=== PATIENT | male | born 1950 ===

== ENCOUNTER 2019-01-20 07:55 | Day surgery (SDC) | payer MEDICARE, OTHER ==
[2019-01-18 14:20] VITALS: BMI 31.5
[2019-01-20] MEDS ORDERED: DEXAMETHASONE SOD PHOSPHATE 10 MG/ML 1 ML VIAL IV ONE (08:01)
[2019-01-20] MEDS ORDERED: LIDOCAINE 1% 20 ML VIAL (10MG/ML) FOR IV START INTRADERMA PRN (08:01)
[2019-01-20] MEDS ORDERED: ONDANSETRON 4 MG/2 ML VIAL IVP ONE (08:01)
[2019-01-20] MEDS ORDERED: LACTATED RINGERS 1,000 ML IV SCH (08:01)
[2019-01-20 08:13] VITALS: RESP 16; TEMP 98.4
[2019-01-20 08:26] LABS: Glucose,Whole Blood 141 mg/dL (75-99)
[2019-01-20] MEDS ORDERED: LIDOCAINE 1% INJ 10MG/ML (20 ML MDV) ONE (09:33)
[2019-01-20] MEDS ORDERED: PROPOFOL 10 MG/ML 20 ML VIAL IV ONE (09:33)
[2019-01-20] MEDS ORDERED: fentaNYL (PF) 50 MCG/ML 2 ML AMP ONE (09:33)
[2019-01-20] MEDS ORDERED: MIDAZOLAM 2 MG/2 ML VIAL ONE (09:33)
--- NOTE | 2019-01-20 10:16 | P.PCN ---
Date of Procedure: 01/20/19 Description of Procedure: BRIEF HISTORY: Patient is a 68-year-old pleasant male scheduled for an elective colonoscopy as a part of screening for malignant neoplasm of the colon. The patient denies any change in bowel habits, blood per rectum, abdominal pain or family history of colon cancer. Last colonoscopy 13 years ago per the patient. PROCEDURE PERFORMED: Colonoscopy with polypectomy. PREOPERATIVE DIAGNOSIS: Screening for malignant neoplasm of the colon, last colonoscopy 13 years ago. ESTIMATED BLOOD LOSS: Minimal. IV sedation per Anesthesia. PROCEDURE: After informed consent was obtained, the patient, was brought into the endoscopy unit. IV sedation was administered by Anesthesia under continuous monitoring. Digital rectal examination was normal. Initially the Olympus CF-190 flexible video colonoscope was then inserted in the rectum, gradually advanced into the cecum without any difficulty. Careful examination was performed as the scope was gradually being withdrawn. Ileocecal valve and the appendiceal orifice were visualized and appeared normal, with a 4 mm ileocecal valve polyp removed with cold forcep polypectomy completely. Prep was good. Mucosa of the cecum, ascending colon, transverse colon, descending colon, sigmoid colon, and rectum appeared normal. Retroflexion was performed in the rectum and no lesions were seen, mild internal hemorrhoids and skin tags noted. The patient tolerated the procedure well. IMPRESSION: Normal-appearing colon from rectum to cecum. Ileocecal valve polyp removed with cold forcep polypectomy. RECOMMENDATIONS: Findings of this examination were discussed with the patient and his . Okay to resume diet. Okay to resume Plavix tomorrow. Await pathology from polypectomy. Would recommend repeat colonoscopy in 5 years pending pathology from polypectomy.
[2019-01-20 10:35] VITALS: BP 151/91; PULSE 77
== END 2019-01-20 10:57 | disposition home or self-care (01) ==
LOC: ORWHC2ENDO 07:55
PROVIDERS: ATTEND Internal Medicine
DX: Z12.11 Encounter for screening for malignant neoplasm of colon (principal); D12.0 Benign neoplasm of cecum; K64.4 Residual hemorrhoidal skin tags; K64.8 Other hemorrhoids; I10 Essential (primary) hypertension; K21.9 Gastro-esophageal reflux disease without esophagitis; E11.9 Type 2 diabetes mellitus without complications; G47.33 Obstructive sleep apnea (adult) (pediatric); Z88.6 Allergy status to analgesic agent; Z88.8 Allergy status to other drugs, medicaments and biological substances; Z87.891 Personal history of nicotine dependence; Z99.89 Dependence on other enabling machines and devices; Z86.73 Personal history of transient ischemic attack (TIA), and cerebral infarction without residual deficits; Z79.02 Long term (current) use of antithrombotics/antiplatelets; Z79.82 Long term (current) use of aspirin; Z79.84 Long term (current) use of oral hypoglycemic drugs; Z79.899 Other long term (current) drug therapy; Z90.49 Acquired absence of other specified parts of digestive tract; Z98.890 Other specified postprocedural states
CPT/HCPCS: 88305; 45380; J2250; J2001; J3010; J2704

== ENCOUNTER → 2022-09-03 | Outpatient (CLI) | payer MEDICARE ==
[2022-09-03 16:12] LABS: Blood Urea Nitrogen 24.3 mg/dL (9.0-27.0); Carbon Dioxide 23.4 mmol/L (21.6-31.8); Chloride 98 mmol/L (96-109); Potassium 4.7 mmol/L (3.5-5.5); Sodium 138 mmol/L (135-145)
[2022-09-03 19:30] LABS: HCT 43.7 % (39.6-50.0); HGB 13.7 d/dL (12.0-15.0); MCH 29.3 pg (27.0-32.0); MCHC 31.4 d/dL (32.0-37.0); MCV 93.4 FL (80.0-97.0); Mean Platelet Volume 11.7 FL (9.5-12.2); NRBC Per 100 WBC 0 X 10*3/uL (0.00-0.01); Platelet Count 258 X 10*3/uL (140-440); RBC 4.68 X 10*6/uL (4.40-5.60); RDW 13.5 % (11.5-14.5); WBC 6.87 X 10*3/uL (4.50-10.00)
[2022-09-04 05:36] LABS: Apolipoprotein A1 133 mg/dL (110 - 205)
[2022-09-04 13:20] LABS: Lipoprotein A 130 mg/dL (0-30)
== END | disposition home or self-care (01) ==
LOC: LABPAT 08:25
PROVIDERS: ATTEND Internal Medicine
DX: Z01.812 Encounter for preprocedural laboratory examination (principal); E78.2 Mixed hyperlipidemia; R94.39 Abnormal result of other cardiovascular function study
CPT/HCPCS: 80051; 82172; 82565; 83695; 84520; 85027

== ENCOUNTER 2022-09-12 11:13 | Day surgery (SDC) | payer MEDICARE, OTHER ==
[~2022-09-12 11:13] MED LIST: ALPRAZolam 0.25 MG TAB PO PRN; ALPRAZolam 0.5 MG TAB PO PRN; ASPIRIN 325 MG TAB PO STA; ATORVASTATIN 80 MG TAB PO STA; HEPARIN SODIUM,PORCINE 10,000 UNIT in SODIUM CHLORIDE 0.9% 1,000 ML IRRIGATION PRN; HEPARIN SODIUM,PORCINE 2,500 UNIT in SODIUM CHLORIDE 0.9% 250 ML IRRIGATION PRN; NITROGLYCERIN SL TABS 0.4 MG TAB SUBLINGUAL PRN
[2022-09-12] MEDS ORDERED: ASPIRIN 81 MG ONE (12:29)
[2022-09-12 12:32] LABS: Glucose,Whole Blood 121 mg/dL (70-110)
[2022-09-12] MEDS ORDERED: HEPARIN SODIUM 1,000 UN/ML (10ML VL) ONE (12:38)
[2022-09-12] MEDS ORDERED: VERAPAMIL 2.5 MG/ML 2 ML AMP ONE (12:38)
[2022-09-12] MEDS ORDERED: SODIUM CHLORIDE 0.9% 1,000 ML IV ONE (12:40)
[2022-09-12] MEDS: MIDAZOLAM 2 MG/2 ML VIAL IV ONE ×2 (12:59→14:10)
[2022-09-12] MEDS ORDERED: fentaNYL (PF) 50 MCG/ML 2 ML AMP IV ONE (12:59)
[2022-09-12] MEDS ORDERED: LIDOCAINE 1% INJ 10MG/ML (5 ML VIAL-PF) SQ ONE (13:11)
[2022-09-12] MEDS ORDERED: VERAPAMIL SYRINGE (5 MG/10 ML) INTRAARTER ONE (13:11)
[2022-09-12] MEDS: HEPARIN SODIUM 1,000 UN/ML (10ML VL) IV ONE ×4 (13:13→14:10)
[2022-09-12] MEDS ORDERED: ADENOSINE 90 MG in SODIUM CHLORIDE 0.9% 60 ML IVP ONE (13:18)
[2022-09-12] MEDS: NITROGLYCERIN 1000MCG/10ML SYRINGE INTRACORON ONE ×2 (13:58→14:03)
[2022-09-12] MEDS: fentaNYL (PF) 50 MCG/ML 2 ML AMP ONE ×2 (14:10→14:23)
[2022-09-12] MEDS ORDERED: NITROGLYCERIN 1000MCG/10ML SYRINGE INTRACORON ONE (14:14)
[2022-09-12] MEDS ORDERED: IOPAMIDOL-370 100ML BTL INJ ONE (14:37)
[2022-09-12] MEDS ORDERED: ATROPINE SULFATE 0.1 MG/ML 10ML SYRINGE IV PRN (14:47)
[2022-09-12] MEDS ORDERED: ZOLPIDEM 5 MG TAB PO PRN (14:47)
[2022-09-12] MEDS ORDERED: RX INFO: IV CONTRAST WAS GIVEN 1 EACH MISC MISCELLANE PRN (14:47)
[2022-09-12] MEDS ORDERED: MAG HYDROX/AL HYDROX/SIMETH 30 ML CUP PO PRN (14:47)
--- NOTE | 2022-09-12 14:47 | P.PRCINT ---
Percutaneous Coronary Int. - Percutaneous Coronary Intervention Percutaneous Coronary Intervention: PROCEDURES PERFORMED: Left heart catheterization, bilateral coronary angiography, ultrasound guided arterial access, iFR/FFR RCA, IVUS RCA, CSI rotational atherectomy RCA, PCI proximal to mid RCA with overlapping 4.0 x 38mm Xience ELENA, post dilated proximally with a 4.5 NC balloon INDICATION: Abnormal stress test, dyspnea on exertion as anginal equivalent CONSENT:I have discussed the risks, benefits and alternative therapies for the above-mentioned procedure and for both sedation/analgesia as well as necessary blood product administration, if indicated, as they pertain to this patient. The patient has indicated understanding and acceptance of the risks and procedures discussed. PROCEDURE: After the risks, benefits and alternatives of the above mentioned procedure explained in detail with the patient, informed consent was obtained. Patient was taken to the catheterization lab and prepped and draped in usual fashion. Ultrasound guidance was used to assess for arterial access. 1% lidocaine was used to anesthetize the right radial artery. A 6-Israeli sheath was placed in the right radial artery using modified Seldinger technique and ultrasound guidance. Left coronary angiography was performed with a 5-Israeli JL 3.5 catheter and right coronary angiography was performed with a 6-Israeli AR2 catheter in various views. A 5-Israeli FR5 catheter was inserted into the left ventricle and pressure measurements were obtained. Decision was made to perform iFR/FFR of the RCA. A 6-Israeli AL 0.75 guide was used to engage the RCA. Likely could've used a AL 1 guide. A 0.014 pressure wire was advanced into the proximal RCA and normalize. It was then advanced 1 cm distal to the RCA lesion. iFR was performed and was noted to be normal at 0.95 however stress test was abnormal in the inferior wall and appeared more significant angiographically. FFR was performed and was abnormal at 0.76 and therefore decision was made to perform PCI. IVUS was performed which showed reference vessel 4.0 mm and diffuse calcification. Therefore the decision was made to perform atherectomy. A 0.014 Viper wire was placed in the distal RCA. CSI rotational atherectomy was performed for 5 passes, 3 at the low level and 2 at the higher level. There was more distal stenosis on angiogram after atherectomy however balloon angioplasty was performed of the proximal mid segment with a 4.0 noncompliant balloon and nitroglycerin was given with improvement in lesions. Intravascular ultrasound showed no significant stenosis and no dissection of the mid to distal RCA and felt related to vasospasm. Next overlapping 4.0 x 38 mm Xience ELENA were placed from the proximal to mid RCA. The proximal portion of the stent was postdilated with a 4.5 NC balloon. Wire was pulled and finally and her grams were performed. Preintervention there was 80% stenosis with AMEYA 3 flow and postintervention there was less than 10% stenosis with AMEYA 3 flow. The right radial sheath was removed and a TR band was placed with hemostasis achieved. The patient tolerated the procedure well. Patient was transported back to the post catheterization holding area in stable condition. Conscious Sedation: Patient was monitored under the direct supervision of myself for conscious sedation using Versed and fentanyl for a total duration of 84 minutes HEMODYNAMICS: Aorta: 133/78 LV: 131/5, LVEDP 25 SELECTIVE CORONARY ARTERIOGRAPHY: LEFT MAIN: The left main is a large caliber vessel which bifurcates into the LAD and circumflex. There is no significant stenosis. LEFT ANTERIOR DESCENDING CORONARY ARTERY: LAD is a large caliber vessel which wraps around to the apex. There is diffuse mild disease and a distal/apical LAD 80% stenosis. LEFT CIRCUMFLEX CORONARY ARTERY: Left circumflex is a moderate caliber vessel with a mid circumflex 60-70% stenosis. RIGHT CORONARY ARTERY: The right coronary artery is a large caliber vessel which gives off a PDA and PLV branch and is the dominant vessel. There is diffuse calcified proximal to mid RCA 50-60% stenosis followed by a more focal 80% mid RCA stenosis. There is mild post stenotic ectasia of the mid RCA. Otherwise there are mild luminal irregularities. FINAL IMPRESSION: 1. CAD as described above including 80% mid RCA, 80% apical LAD and 60-70% mid circumflex stenosis. 2. S/p CSI rotational atherectomy RCA, PCI proximal to mid RCA with overlapping 4.0 x 38mm Xience ELENA, post dilated proximally with a 4.5 NC balloon 3. Normal left sided filling pressures PLAN: 1. Aggressive risk factor modification per most recent ACC/AHA guidelines. 2. Continue dual antiplatelets with aspirin and Plavix for 6 months. 3. Consider staged intervention of apical LAD.
[2022-09-12] MEDS: SODIUM CHLORIDE 0.9% 1,000 ML in EMPTY BAG 1 BAG IV SCH ×5 (17:18→22:18)
[2022-09-12 19:55] LABS: Glucose,Whole Blood 175 mg/dL (70-110)
[2022-09-12] MEDS: hydrALAZINE HCL 25 MG TAB PO SCH (20:01)
[2022-09-12] MEDS ORDERED: ATORVASTATIN 10 MG TAB PO SCH (21:00)
[2022-09-13 04:26] VITALS: TEMP 97.6
[2022-09-13 06:07] LABS: Glucose,Whole Blood 151 mg/dL (70-110)
--- NOTE | 2022-09-13 06:48 | P.DS ---
Providers Attending physician: Fab Song DO Consults: 09/12/22 14:47 Consult Physician Routine Consulting Provider: [facility] Consult Reason/Comments: Post Interventional Patient Do you want consulting provider notified?: Already Contacted Primary care physician: Libby Bobby [facility] Course: The patient is a pleasant 72-year-old gentleman with CAD as well as hypertension and dyslipidemia who underwent yesterday successful stenting of the right coronary artery by Dr. Song September [id number] The patient was seen and evaluated this morning. He is asymptomatic. He is hemodynamically stable. He is going to be discharged on dual antiplatelet therapy as well as a statin and he will follow-up in the office in a week. Plan - Discharge Summary Discharge Rx Participant: Yes New Discharge Prescriptions: Continue Clopidogrel [Plavix] 75 mg PO DAILY glipiZIDE [Glucotrol] 5 mg PO AC-BRKFST Simvastatin [Zocor] 20 mg PO HS Sennosides [Senokot] 8.6 mg PO DAILY raNITIdine HCL [Zantac] 150 mg PO DAILY Metoprolol Succinate (ER) [Toprol XL] 50 mg PO DAILY Folic Acid 0.8 mg PO DAILY Aspirin [Adult Low Dose Aspirin EC] 81 mg PO DAILY hydrALAZINE HCL 25 mg PO QID Discontinued metFORMIN HCL [Glucophage] 1,000 mg PO BID Discharge Medication List Aspirin [Adult Low Dose Aspirin EC] 81 mg PO DAILY 01/18/19 [History] Clopidogrel [Plavix] 75 mg PO DAILY 01/18/19 [History] Folic Acid 0.8 mg PO DAILY 01/18/19 [History] Metoprolol Succinate (ER) [Toprol XL] 50 mg PO DAILY 01/18/19 [History] Sennosides [Senokot] 8.6 mg PO DAILY 01/18/19 [History] Simvastatin [Zocor] 20 mg PO HS 01/18/19 [History] glipiZIDE [Glucotrol] 5 mg PO AC-BRKFST 01/18/19 [History] raNITIdine HCL [Zantac] 150 mg PO DAILY 01/18/19 [History] hydrALAZINE HCL 25 mg PO QID 09/12/22 [History] Follow up Appointment(s)/Referral(s): Fab Song DO [STAFF PHYSICIAN] - 1 Week (APPOINTMENT MADE ON August @ 3:30PM ) Patient Instructions/Handouts: Moderate Sedation (DC), After Radial Heart Catheterization (GEN) Activity/Diet/Wound Care/Special Instructions: *NO LIFTING, PUSHING, OR PULLING ANYTHING OVER 5 POUNDS FOR 5 DAYS *NO DRIVING FOR 3 DAYS *YOU CAN REMOVE YOUR DRESSING AND SHOWER TOMORROW BUT DO NOT SUBMERSE YOUR PUNCTURE SITE IN WATER FOR A FEW DAYS TO PREVENT INFECTION - SO NO TUB BATHS, POOLS, HOT TUBS, DISHES...ETC *ANY SIGNS OF BLEEDING (HARDNESS, SWELLING, OR EXCESSIVE BRUISING) HOLD DIRECT PRESSURE ON YOUR PUNCTURE SITE AND COME TO THE NEAREST EMERGENCY ROOM TO GET YOUR PUNCTURE SITE LOOKED AT - DO NOT DRIVE YOURSELF! EITHER CALL EMS OR HAVE SOMEONE DRIVE YOU!
[2022-09-13] MEDS ORDERED: glipiZIDE 5 MG TAB PO SCH (07:30)
[2022-09-13 08:24] LABS: African American GFR (CKD) >90 (>60 ml/min/1.73 sqM); Non-African American GFR(CKD) >90 (>60 ml/min/1.73 sqM)
[2022-09-13] MEDS ORDERED: ASPIRIN 81 MG PO SCH (09:00)
[2022-09-13] MEDS ORDERED: CLOPIDOGREL 75 MG TAB PO SCH (09:00)
[2022-09-13] MEDS ORDERED: SENNOSIDES 8.6 MG TAB PO SCH (09:00)
[2022-09-13] MEDS ORDERED: METOPROLOL SUCCINATE (ER) 50 MG TAB.ER.24H PO SCH (09:00)
[2022-09-13] MEDS ORDERED: FOLIC ACID 1 MG TAB PO SCH (09:00)
[2022-09-13] MEDS ORDERED: FAMOTIDINE 20 MG TAB PO SCH (09:00)
[2022-09-13] MEDS: hydrALAZINE HCL 25 MG TAB PO SCH (09:10)
[2022-09-13 10:19] VITALS: BP 132/79; PULSE 88; RESP 18
== END 2022-09-13 10:33 | disposition home or self-care (01) ==
LOC: CATHCVL 11:13 → 3SCARD 14:30 → CATHCVL 09-13 10:33
PROVIDERS: ATTEND Internal Medicine
DX: I25.10 Atherosclerotic heart disease of native coronary artery without angina pectoris (principal); Z79.82 Long term (current) use of aspirin; Z79.02 Long term (current) use of antithrombotics/antiplatelets
CPT/HCPCS: 93571; 92978; 93458; 92933; 82565; C1887; C1769 ×2; C1894; C1725 ×3; C1753; C1724; C1874; J2250; J2001; J3010; J1644; J0153; Q9967

== ENCOUNTER → 2023-01-09 | Outpatient (CLI) | payer MEDICARE ==
[2023-01-09 16:37] LABS: ALT 12 U/L (10-49); AST 30 U/L (14-35); Chol/HDL Ratio 3.98 Ratio; LDL Cholesterol,Calculated 89.8 mg/dL (0.0-131.0)
== END | disposition home or self-care (01) ==
LOC: LABWHC1 08:43
PROVIDERS: ATTEND Nurse Practitioner Acute Care
DX: E78.2 Mixed hyperlipidemia (principal)
CPT/HCPCS: 36415; 80061; 84450; 84460

== ENCOUNTER → 2023-06-03 | Outpatient (CLI) | payer MEDICARE ==
[2023-06-03 11:43] LABS: Basophils # (A) 0.07 X 10*3/uL (0.00-0.10); Basophils % (A) 0.9 %; Eosinophils # (A) 0.54 X 10*3/uL (0.04-0.35); Eosinophils % (A) 7.2 %; HCT 45.8 % (39.6-50.0); Lymphocytes # (A) 0.64 X 10*3/uL (0.90-5.00); Lymphocytes % (A) 8.5 %; MCHC 32.8 g/dL (32.0-37.0); MCV 91.6 FL (80.0-97.0); Mean Platelet Volume 10.7 FL (9.5-12.2); Monocytes # (A) 0.65 X 10*3/uL (0.20-1.00); Monocytes % (A) 8.6 %; NRBC Per 100 WBC 0 X 10*3/uL (0.00-0.01); Neutrophils # (A) 5.62 X 10*3/uL (1.80-7.70); Neutrophils % (A) 74.5 %; Platelet Count 242 X 10*3/uL (140-440); RDW 13.8 % (11.5-14.5); WBC 7.54 X 10*3/uL (4.50-10.00)
[2023-06-03 18:30] LABS: Chol/HDL Ratio 1.49 Ratio; LDL Cholesterol,Calculated 24.7 mg/dL (0.0-131.0); VLDL Calculation 12.46 mg/dL (5.00-40.00)
[2023-06-03 18:31] LABS: ALT 41 U/L (10-49); AST 62 U/L (14-35); Albumin 3.9 g/dL (3.8-4.9); Albumin/Globulin Ratio 1.62 Ratio (1.60-3.17); Alkaline Phosphatase 72 U/L (41-126); BUN/Creat Ratio 21.33 Ratio (12.00-20.00); Blood Urea Nitrogen 12.8 mg/dL (9.0-27.0); Calcium 9.5 mg/dL (8.7-10.3); Carbon Dioxide 26.4 mmol/L (21.6-31.8); Chloride 104 mmol/L (96-109); Globulin 2.4 g/dL (1.6-3.3); Glucose 99 mg/dL (70-110); Prostate Specific Antigen 2.84 ng/mL (0.000-6.500); Sodium 140 mmol/L (135-145); Total Bilirubin 0.5 mg/dL (0.3-1.2); Total Protein 6.3 g/dL (6.2-8.2)
== END | disposition home or self-care (01) ==
LOC: LABWHC1 08:26
PROVIDERS: ATTEND Internal Medicine
DX: Z12.5 Encounter for screening for malignant neoplasm of prostate (principal); I13.10 Hypertensive heart and chronic kidney disease without heart failure, with stage 1 through stage 4 chronic kidney disease, or unspecified chronic kidney disease; E11.22 Type 2 diabetes mellitus with diabetic chronic kidney disease; E78.2 Mixed hyperlipidemia; E78.00 Pure hypercholesterolemia, unspecified; N18.9 Chronic kidney disease, unspecified; E55.9 Vitamin D deficiency, unspecified; R53.83 Other fatigue
CPT/HCPCS: 36415; 80053; 80061; 82306; 83036; 84153; 84443; 85025